=== PATIENT | female | born 1950 | race Two or more races ===

== ENCOUNTER 2023-10-23 15:08 | Inpatient (IN) | payer MEDICARE, OTHER ==
[~2023-10-23] VITALS: Ht 167.6 cm; Wt 59.9 kg
[2023-10-23 16:25] LABS: BASOPHILS # (AUTO) 0.1 K/uL (0.0-0.2); BASOPHILS % (AUTO) 1.3 % (0.0-2.0); EOSINOPHILS # (AUTO) 0.3 K/uL (0.0-0.7); EOSINOPHILS % (AUTO) 4.1 % (0.0-6.0); HEMATOCRIT 45 % (33-45); HEMOGLOBIN 14.9 g/dL (11.5-14.8); LYMPHOCYTES # (AUTO) 1.9 K/uL (0.8-4.8); LYMPHOCYTES % (AUTO) 26.6 % (20.0-44.0); MEAN CORPUSCULAR HEMOGLOBIN 31 PG (26.0-33.0); MEAN CORPUSCULAR HGB CONC 33 g/dl (31.0-36.0); MEAN CORPUSCULAR VOLUME 93 fL (82-100); MONOCYTES # (AUTO) 0.5 K/uL (0.1-1.30); MONOCYTES % (AUTO) 7.4 % (2.0-12.0); NEUTROPHILS # (AUTO) 4.3 K/uL (1.8-8.9); NEUTROPHILS % (AUTO) 60.6 % (43.0-81.0); PLATELET COUNT (AUTO) 218 K/uL (150-450); RED CELL DISTRIBUTION WIDTH 12.6 % (11.5-15.0); WHITE BLOOD COUNT (AUTO) 7.1 K/uL (4.3-11.0)
[2023-10-23 17:25] LABS: ALANINE AMINOTRANSFERASE 12 U/L (12-78); ALBUMIN 3.7 g/dL (3.4-5.0); ALCOHOL, BLOOD < 3 mg/dL (0-10); ALKALINE PHOSPHATASE 77 U/L (46-116); ASPARTATE AMINOTRANSFERASE 16 U/L (15-37); BILIRUBIN,DIRECT 0.1 mg/dL (0.0-0.2); BILIRUBIN,TOTAL 0.6 mg/dL (0.2-1.0); CARBON DIOXIDE 25 mmol/L (21-32); CHLORIDE 102 mmol/L (98-107); CREATININE 1.2 mg/dL (0.6-1.3); GLUCOSE 99 mg/dL (74-106); POTASSIUM 4.3 mmol/L (3.5-5.1); SODIUM SERUM 136 mmol/L (136-145); TOTAL PROTEIN, SERUM 8.1 g/dL (6.4-8.2); UREA NITROGEN, BLOOD 26 mg/dL (7-18)
[2023-10-23 17:27] LABS: ACETAMINOPHEN 0 ug/ml (10-30); SALICYLATE 1.3 mg/dL (2.8-20.0)
[2023-10-23 17:32] LABS: CALCIUM, SERUM 9.5 mg/dL (8.5-10.1)
[2023-10-23 17:40] LABS: THYROID STIMULATING HORMONE 2.713 uIU/mL (0.358-3.74)
[2023-10-23 18:29] LABS: APPEARANCE,URINE Clear (CLEAR); BILIRUBIN,URINE MODERATE (NEGATIVE); BLOOD, URINE Small Ery/uL (NEGATIVE); COLOR,URINE DARK YELLOW (YELLOW); KETONES,URINE 80 mg/dL (NEGATIVE); LEUKOCYTE ESTERASE ,URINE Trace (NEGATIVE); NITRITE, URINE Negative (NEGATIVE); PH,URINE 5.5 (5.0-8.0); PROTEIN,URINE Negative (NEGATIVE); UGLUCOSE Negative (NEGATIVE); UROBILINOGEN,URINE 0.2 EU/dL (0.2)
[2023-10-23 18:31] LABS: AMPHETAMINE, URINE NEGATIVE (NEGATIVE); BARBITURATE, URINE NEGATIVE (NEGATIVE); BENZODIAZEPINE, URINE NEGATIVE (NEGATIVE); CANNABINOID, URINE NEGATIVE (NEGATIVE); COCCAINE, URINE NEGATIVE (NEGATIVE); OPIATE, URINE NEGATIVE (NEGATIVE); PHENCYCLIDINE SCREEN,URINE NEGATIVE (NEGATIVE)
[2023-10-23 18:57] LABS: BACTERIA,URINE Moderate /HPF (None Seen); MUCUS,URINE Moderate /LPF (None Seen); SQUAMOUS EPITHELIAL CELL,UR Moderate /HPF (None Seen)
[2023-10-23 18:58] LABS: ADD URINE CULTURE YES
[2023-10-23] MEDS: IV NS 0.9% 1,000 ML BAG IV ONE (19:52)
[2023-10-23 20:00] VITALS: BP 124/64; TEMP 97.8; O2SAT 97
[2023-10-23] MEDS ORDERED: MAGNESIUM HYDROXIDE 30 ML UDC PO PRN (20:00)
[2023-10-23] MEDS ORDERED: IV NS 0.9% 1,000 ML IV PRN (20:00)
[2023-10-23] MEDS ORDERED: HYDROCODONE/APAP 5/325MG TABLET PO PRN (20:00)
[2023-10-23] MEDS ORDERED: Z GUARD REMEDY 4 OZ OINT TP PRN (20:00)
[2023-10-23] MEDS ORDERED: ONDANSETRON HCL/PF 4 MG/2 ML VIAL IVP PRN (20:00)
[2023-10-23] MEDS ORDERED: ACETAMINOPHEN 325 MG TABLET PO PRN (20:00)
[2023-10-23] MEDS ORDERED: MAG HYDROX/AL HYDROX/SIMETH 30 ML UDC PO PRN (20:00)
[2023-10-24 04:00] VITALS: BP 124/64; TEMP 97.8; O2SAT 97
[2023-10-24 07:31] LABS: CARBON DIOXIDE 23 mmol/L (21-32); CHLORIDE 104 mmol/L (98-107); CREATININE 1.1 mg/dL (0.6-1.3); GLUCOSE 90 mg/dL (74-106); MAGNESIUM 1.9 mg/dL (1.8-2.4); PHOSPHORUS 3.2 mg/dL (2.5-4.9); POTASSIUM 3.7 mmol/L (3.5-5.1); SODIUM SERUM 138 mmol/L (136-145); UREA NITROGEN, BLOOD 24 mg/dL (7-18)
[2023-10-24 07:42] LABS: THYROID STIMULATING HORMONE 2.329 uIU/mL (0.358-3.74)
[2023-10-24 07:44] LABS: CALCIUM, SERUM 8.7 mg/dL (8.5-10.1)
[2023-10-24 07:49] LABS: BASOPHILS # (AUTO) 0.1 K/uL (0.0-0.2); BASOPHILS % (AUTO) 0.8 % (0.0-2.0); EOSINOPHILS # (AUTO) 0.3 K/uL (0.0-0.7); EOSINOPHILS % (AUTO) 3.9 % (0.0-6.0); HEMATOCRIT 40 % (33-45); HEMOGLOBIN 13.5 g/dL (11.5-14.8); LYMPHOCYTES # (AUTO) 2.9 K/uL (0.8-4.8); LYMPHOCYTES % (AUTO) 34.1 % (20.0-44.0); MEAN CORPUSCULAR HEMOGLOBIN 31 PG (26.0-33.0); MEAN CORPUSCULAR HGB CONC 33 g/dl (31.0-36.0); MEAN CORPUSCULAR VOLUME 93 fL (82-100); MONOCYTES # (AUTO) 0.7 K/uL (0.1-1.30); MONOCYTES % (AUTO) 8.6 % (2.0-12.0); NEUTROPHILS # (AUTO) 4.5 K/uL (1.8-8.9); NEUTROPHILS % (AUTO) 52.6 % (43.0-81.0); PLATELET COUNT (AUTO) 205 K/uL (150-450); RED BLOOD CELL COUNT(AUTO) 4.36 MIL/uL (4.0-5.2); RED CELL DISTRIBUTION WIDTH 12.5 % (11.5-15.0); WHITE BLOOD COUNT (AUTO) 8.6 K/uL (4.3-11.0)
[2023-10-24] MEDS ORDERED: VENL37.55 PO (07:52)
[2023-10-24] MEDS ORDERED: APIX5TAB PO (07:52)
[2023-10-24] MEDS ORDERED: ONDA4TAB5 PO (07:52)
[2023-10-24] MEDS ORDERED: ACET-868 PO (07:52)
[2023-10-24] MEDS ORDERED: DILT30TA2 PO (07:52)
[2023-10-24] MEDS ORDERED: OLAN20TA3 PO (07:52)
[2023-10-24] MEDS ORDERED: CHOL200059 PO (07:52)
[2023-10-24] MEDS: PANTOPRAZOLE 40 MG TABLET.DR PO SCH (08:11)
[2023-10-24] MEDS: ENSURE ENLIVE 237 ML LIQUID (VANILLA) PO SCH (09:00)
[2023-10-24 16:00] VITALS: BP 90/37; TEMP 97.6
[2023-10-24 20:00] VITALS: BP 90/37; TEMP 97.6
[2023-10-25 04:00] VITALS: BP 90/37; TEMP 97.6
[2023-10-25 06:33] LABS: BASOPHILS # (AUTO) 0.1 K/uL (0.0-0.2); BASOPHILS % (AUTO) 1.3 % (0.0-2.0); EOSINOPHILS # (AUTO) 0.3 K/uL (0.0-0.7); EOSINOPHILS % (AUTO) 4.1 % (0.0-6.0); HEMATOCRIT 40 % (33-45); HEMOGLOBIN 13.6 g/dL (11.5-14.8); LYMPHOCYTES # (AUTO) 2.6 K/uL (0.8-4.8); LYMPHOCYTES % (AUTO) 33.6 % (20.0-44.0); MEAN CORPUSCULAR HEMOGLOBIN 32 PG (26.0-33.0); MEAN CORPUSCULAR HGB CONC 34 g/dl (31.0-36.0); MEAN CORPUSCULAR VOLUME 93 fL (82-100); MONOCYTES # (AUTO) 0.7 K/uL (0.1-1.30); MONOCYTES % (AUTO) 8.4 % (2.0-12.0); NEUTROPHILS # (AUTO) 4.1 K/uL (1.8-8.9); NEUTROPHILS % (AUTO) 52.6 % (43.0-81.0); PLATELET COUNT (AUTO) 198 K/uL (150-450); RED BLOOD CELL COUNT(AUTO) 4.33 MIL/uL (4.0-5.2); RED CELL DISTRIBUTION WIDTH 12.6 % (11.5-15.0); WHITE BLOOD COUNT (AUTO) 7.7 K/uL (4.3-11.0)
[2023-10-25 07:12] LABS: CARBON DIOXIDE 24 mmol/L (21-32); CHLORIDE 106 mmol/L (98-107); CREATININE 1.1 mg/dL (0.6-1.3); GLUCOSE 101 mg/dL (74-106); MAGNESIUM 1.9 mg/dL (1.8-2.4); PHOSPHORUS 3.5 mg/dL (2.5-4.9); POTASSIUM 3.8 mmol/L (3.5-5.1); SODIUM SERUM 141 mmol/L (136-145); UREA NITROGEN, BLOOD 25 mg/dL (7-18)
[2023-10-25] MEDS ORDERED: ONDANSETRON 4 MG TAB.RAPDIS PO PRN (07:30)
[2023-10-25] MEDS: APIXABAN 5 MG TABLET PO SCH (09:00)
[2023-10-25] MEDS: CHOLECALCIFEROL 1,000 UNIT TABLET (VIT D3) PO SCH (09:00)
[2023-10-25] MEDS: DILTIAZEM HCL 30 MG TABLET PO SCH (09:00)
[2023-10-25] MEDS: VENLAFAXINE XR 37.5 MG CAP.SR.24H PO SCH (09:00)
[2023-10-25 12:00] VITALS: BP 102/58; TEMP 97.4; O2SAT 97
[2023-10-25] MEDS: OLANZAPINE 10 MG TABLET PO SCH (22:00)
[2023-10-26 12:00] VITALS: BP 110/60; TEMP 98; O2SAT 97
[2023-10-27 04:00] VITALS: BP 110/60; TEMP 98; O2SAT 97
[2023-10-28] MEDS: OLANZAPINE 10 MG VIAL IM PRN (08:49)
[2023-10-28] MEDS: OLANZAPINE 10 MG VIAL IM ONE (12:44)
[2023-10-28] MEDS: ENSURE ENLIVE 237 ML LIQUID (VANILLA) PO SCH (14:00)
[2023-10-28 20:00] VITALS: BP 110/60; TEMP 98; O2SAT 97
[2023-10-28] MEDS ORDERED: OLANZAPINE 10 MG VIAL IM PRN (21:30)
[2023-10-29 04:00] VITALS: BP 110/60; TEMP 98; O2SAT 97
[2023-10-29 08:00] VITALS: BP 97/70; TEMP 97.5; O2SAT 94
[2023-10-30 04:00] VITALS: BP 97/70
[2023-11-01 20:00] VITALS: BP 97/70; TEMP 97.5; O2SAT 94
[2023-11-02 04:00] VITALS: BP 97/70; TEMP 97.5; O2SAT 94
[2023-11-02] MEDS ORDERED: HYDR-3972 PO (23:43)
[2023-11-02] MEDS ORDERED: PANT40TA2 PO (23:44)
== END 2023-11-02 23:16 | DRG 640 ==
LOC: ER 15:52 → MEDSG1 20:34
PROVIDERS: ADMIT Nurse Practitioner Acute Care; ATTEND Nurse Practitioner Family
DX: R62.7 Adult failure to thrive (principal); U07.1 COVID-19; I48.20 Chronic atrial fibrillation, unspecified; R79.89 Other specified abnormal findings of blood chemistry; F20.9 Schizophrenia, unspecified; I10 Essential (primary) hypertension; F32.A Depression, unspecified; F29 Unspecified psychosis not due to a substance or known physiological condition; R26.9 Unspecified abnormalities of gait and mobility; R53.1 Weakness; Z78.9 Other specified health status; Z79.01 Long term (current) use of anticoagulants
CPT/HCPCS: 36415; 71045-TC; 80048-TC; 80076-TC; 81001; 82962-TC; 83735-TC; 84100-TC; 84443-TC; 85025-TC; 87081-TC; 87086-TC; 97110-TC; 97116-TC; 97530-TC; G0378; G0480; J3490

== ENCOUNTER 2023-11-02 22:52 | Inpatient (IN) | payer MEDICARE, OTHER ==
[~2023-11-02] VITALS: Ht 167.6 cm; Wt 59.9 kg
[~2023-11-02 22:52] MED LIST: ACET-868 PO; APIX5TAB PO; CHOL200059 PO; DILT30TA2 PO; OLAN20TA3 PO; ONDA4TAB5 PO; VENL37.55 PO
[2023-11-02] MEDS ORDERED: HYDR-3972 PO (23:43)
[2023-11-02] MEDS ORDERED: PANT40TA2 PO (23:44)
[2023-11-03] MEDS ORDERED: LORAZEPAM 0.5 MG TABLET PO PRN
[2023-11-03] MEDS ORDERED: MAG HYDROX/AL HYDROX/SIMETH 30 ML UDC PO PRN
[2023-11-03] MEDS ORDERED: ONDANSETRON 4 MG TAB.RAPDIS PO PRN
[2023-11-03] MEDS ORDERED: MAGNESIUM HYDROXIDE 30 ML UDC PO PRN
[2023-11-03] MEDS ORDERED: Z GUARD REMEDY 4 OZ OINT TP PRN
[2023-11-03] MEDS ORDERED: TEMAZEPAM 7.5 MG CAPSULE PO PRN
[2023-11-03] MEDS: BLOOD SUGAR DIAGNOSTIC 1 EACH STRIP IN ONE (00:16)
[2023-11-03] MEDS ORDERED: HYDROCODONE/APAP 5/325MG TABLET PO PRN ×2 (00:30)
[2023-11-03] MEDS ORDERED: ACETAMINOPHEN 325 MG TABLET PO PRN ×2 (00:30)
[2023-11-03] MEDS ORDERED: PANTOPRAZOLE 40 MG TABLET.DR PO SCH (07:30)
[2023-11-03] MEDS: CHOLECALCIFEROL 1,000 UNIT TABLET (VIT D3) PO SCH ×2 (08:38→08:40)
[2023-11-03] MEDS: PANTOPRAZOLE 40 MG TABLET.DR PO SCH (08:38)
[2023-11-03] MEDS: DILTIAZEM HCL 30 MG TABLET PO SCH (08:39)
[2023-11-03] MEDS: ENSURE ENLIVE 237 ML LIQUID (VANILLA) PO SCH (08:40)
[2023-11-03] MEDS: APIXABAN 5 MG TABLET PO SCH (08:47)
[2023-11-03] MEDS ORDERED: DILTIAZEM HCL 30 MG TABLET PO SCH (09:00)
[2023-11-03] MEDS ORDERED: APIXABAN 5 MG TABLET PO SCH (09:00)
[2023-11-03] MEDS: OLANZAPINE ZYDIS 5 MG TAB.RAPDIS PO SCH (11:30)
[2023-11-07] MEDS: OLANZAPINE ZYDIS 5 MG TAB.RAPDIS PO SCH (11:30)
[2023-11-07] MEDS: OLANZAPINE 10 MG VIAL IM PRN (12:04)
[2023-11-08 08:00] VITALS: BP 128/60; O2SAT 98
[2023-11-08 16:00] VITALS: BP 104/71; TEMP 97.9; O2SAT 98
[2023-11-08 20:00] VITALS: BP 115/67; TEMP 98; O2SAT 97
[2023-11-09 08:00] VITALS: BP 116/70; TEMP 97.7; O2SAT 97
[2023-11-09 16:00] VITALS: BP 113/52; TEMP 98; O2SAT 98
[2023-11-09 20:50] VITALS: BP 117/73; TEMP 98; O2SAT 98
[2023-11-10 08:00] VITALS: BP 113/65; TEMP 97.9; O2SAT 99
[2023-11-10 16:00] VITALS: BP 107/54; TEMP 97.8; O2SAT 96
[2023-11-10 21:06] VITALS: BP 115/79; TEMP 97.9; O2SAT 99
[2023-11-11 08:00] VITALS: BP 119/66; TEMP 97.9; O2SAT 98
[2023-11-11 16:00] VITALS: BP 104/66; TEMP 98.4; O2SAT 100
[2023-11-12 08:00] VITALS: BP 101/63; TEMP 97.7; O2SAT 100
[2023-11-12 16:00] VITALS: BP 117/51; TEMP 97.8; O2SAT 98
[2023-11-12 20:27] VITALS: BP 115/67; TEMP 98.2; O2SAT 100
[2023-11-13 08:00] VITALS: BP 111/64; TEMP 97.8; O2SAT 99
[2023-11-13 12:20] VITALS: BP 120/70
== END 2023-11-13 13:33 | DRG 885 ==
LOC: GPS 22:52
PROVIDERS: ADMIT Psychiatry & Neurology Psychiatry; ATTEND Nurse Practitioner Acute Care
DX: F20.9 Schizophrenia, unspecified (principal); I48.20 Chronic atrial fibrillation, unspecified; F29 Unspecified psychosis not due to a substance or known physiological condition; F32.A Depression, unspecified; R62.7 Adult failure to thrive; R41.9 Unspecified symptoms and signs involving cognitive functions and awareness; Z73.6 Limitation of activities due to disability; F39 Unspecified mood [affective] disorder; Z79.01 Long term (current) use of anticoagulants; I10 Essential (primary) hypertension; R26.9 Unspecified abnormalities of gait and mobility; Z91.199 Patient's noncompliance with other medical treatment and regimen due to unspecified reason; Z86.16 Personal history of COVID-19; Z91.148 Patient's other noncompliance with medication regimen for other reason
CPT/HCPCS: 97112-TC; 97530-TC; J3490; Q0162

== ENCOUNTER 2024-03-09 14:30 | Inpatient (IN) | payer MEDICARE, OTHER ==
[~2024-03-09] VITALS: Ht 165.1 cm; Wt 68.1 kg
[~2024-03-09 14:30] MED LIST changes: +HYDR-3972 PO; +PANT40TA2 PO
[2024-03-09] MEDS: IV NS 0.9% 1,000 ML BAG IV ONE (15:00)
[2024-03-09] MEDS ORDERED: ONDANSETRON HCL/PF 4 MG/2 ML VIAL ONE (15:13)
[2024-03-09] MEDS: ONDANSETRON HCL/PF 4 MG/2 ML VIAL IVP ONE (15:15)
[2024-03-09 15:17] LABS: BASOPHILS # (AUTO) 0.1 K/uL (0.0-0.2); BASOPHILS % (AUTO) 0.9 % (0.0-2.0); EOSINOPHILS # (AUTO) 0.2 K/uL (0.0-0.7); EOSINOPHILS % (AUTO) 2.9 % (0.0-6.0); HEMATOCRIT 40 % (33-45); HEMOGLOBIN 13.2 g/dL (11.5-14.8); LYMPHOCYTES # (AUTO) 1.8 K/uL (0.8-4.8); LYMPHOCYTES % (AUTO) 21.9 % (20.0-44.0); MEAN CORPUSCULAR HEMOGLOBIN 32 PG (26.0-33.0); MEAN CORPUSCULAR HGB CONC 33 g/dl (31.0-36.0); MEAN CORPUSCULAR VOLUME 95 fL (82-100); MONOCYTES # (AUTO) 0.7 K/uL (0.1-1.30); MONOCYTES % (AUTO) 8.6 % (2.0-12.0); NEUTROPHILS # (AUTO) 5.5 K/uL (1.8-8.9); NEUTROPHILS % (AUTO) 65.7 % (43.0-81.0); PLATELET COUNT (AUTO) 240 K/uL (150-450); RED BLOOD CELL COUNT(AUTO) 4.17 MIL/uL (4.0-5.2); RED CELL DISTRIBUTION WIDTH 12.9 % (11.5-15.0); WHITE BLOOD COUNT (AUTO) 8.4 K/uL (4.3-11.0)
[2024-03-09] MEDS ORDERED: LORA-258 PO (15:23)
[2024-03-09] MEDS ORDERED: TEMA7.5C12 PO (15:23)
[2024-03-09] MEDS ORDERED: OLAN5TAB3 PO (15:23)
[2024-03-09] MEDS ORDERED: MAG30ORA PO (15:23)
[2024-03-09] MEDS ORDERED: NITR100C15 PO (15:23)
[2024-03-09] MEDS ORDERED: MAGN400O6 PO (15:23)
[2024-03-09] MEDS ORDERED: NALO4SPR NS (15:23)
[2024-03-09 15:25] LABS: CALCIUM, SERUM 9.7 mg/dL (8.5-10.1); CARBON DIOXIDE 27 mmol/L (21-32); CHLORIDE 108 mmol/L (98-107); CREATININE 1.4 mg/dL (0.6-1.3); GLUCOSE 109 mg/dL (74-106); POTASSIUM 4.2 mmol/L (3.5-5.1); SODIUM SERUM 142 mmol/L (136-145); UREA NITROGEN, BLOOD 24 mg/dL (7-18)
[2024-03-09 15:31] LABS: ALANINE AMINOTRANSFERASE 15 U/L (12-78); ALBUMIN 3.5 g/dL (3.4-5.0); ALKALINE PHOSPHATASE 83 U/L (46-116); ASPARTATE AMINOTRANSFERASE 19 U/L (15-37); BILIRUBIN,DIRECT 0.1 mg/dL (0.0-0.2); BILIRUBIN,TOTAL 0.7 mg/dL (0.2-1.0); TOTAL PROTEIN, SERUM 7.6 g/dL (6.4-8.2)
[2024-03-09 15:34] LABS: LACTIC ACID 1.2 mmol/L (0.4-2.0)
[2024-03-09 16:14] LABS: APPEARANCE,URINE Cloudy (CLEAR); BILIRUBIN,URINE Negative (NEGATIVE); BLOOD, URINE Moderate Ery/uL (NEGATIVE); COLOR,URINE DARK YELLOW (YELLOW); KETONES,URINE Trace mg/dL (NEGATIVE); LEUKOCYTE ESTERASE ,URINE Negative (NEGATIVE); NITRITE, URINE Positive (NEGATIVE); PROTEIN,URINE Trace mg/dl (NEGATIVE); UGLUCOSE Negative (NEGATIVE); UROBILINOGEN,URINE 0.2 EU/dL (0.2)
[2024-03-09 16:29] LABS: INR 1.08 (0.91-1.10); PARTIAL THROMBOPLASTIN TIME 28.3 SEC (24.3-34.3); PROTHROMBIN TIME 11.4 SECS (9.2-11.1)
[2024-03-09] MEDS ORDERED: MORPHINE SULFATE INJ 2 MG/ML DISP.SYRIN IV PRN (16:30)
[2024-03-09] MEDS ORDERED: LORAZEPAM 0.5 MG TABLET PO PRN (16:30)
[2024-03-09] MEDS ORDERED: ONDANSETRON HCL/PF 4 MG/2 ML VIAL IVP PRN (16:30)
[2024-03-09 16:59] LABS: ADD URINE CULTURE YES; BACTERIA,URINE 2+ /HPF (None Seen); CALCIUM OXALATE CRYSTALS,UR Many /HPF (None Seen)
[2024-03-09] MEDS: OLANZAPINE 5 MG TABLET PO SCH (17:00)
[2024-03-09] MEDS: APIXABAN 5 MG TABLET PO SCH (17:00)
[2024-03-09] MEDS: DILTIAZEM HCL 30 MG TABLET PO SCH (17:00)
[2024-03-09] MEDS: IV NS 0.9% 1,000 ML IV SCH (17:48)
[2024-03-09 18:00] VITALS: BP 115/72; TEMP 98.4; O2SAT 100
[2024-03-09] MEDS: CEFTRIAXONE 1 G in IV D5W 50 ML IV SCH (18:12)
[2024-03-09 20:00] VITALS: BP 110/68; TEMP 97.9; O2SAT 99
[2024-03-10 04:00] VITALS: BP 104/60; TEMP 97.9; O2SAT 99
[2024-03-10 07:08] LABS: BASOPHILS # (AUTO) 0.1 K/uL (0.0-0.2); BASOPHILS % (AUTO) 0.8 % (0.0-2.0); EOSINOPHILS # (AUTO) 0.4 K/uL (0.0-0.7); EOSINOPHILS % (AUTO) 4.5 % (0.0-6.0); HEMATOCRIT 35 % (33-45); HEMOGLOBIN 11.6 g/dL (11.5-14.8); LYMPHOCYTES # (AUTO) 2.6 K/uL (0.8-4.8); LYMPHOCYTES % (AUTO) 29.4 % (20.0-44.0); MEAN CORPUSCULAR HEMOGLOBIN 31 PG (26.0-33.0); MEAN CORPUSCULAR HGB CONC 33 g/dl (31.0-36.0); MEAN CORPUSCULAR VOLUME 94 fL (82-100); MONOCYTES % (AUTO) 11.6 % (2.0-12.0); NEUTROPHILS # (AUTO) 4.7 K/uL (1.8-8.9); NEUTROPHILS % (AUTO) 53.7 % (43.0-81.0); PLATELET COUNT (AUTO) 204 K/uL (150-450); RED BLOOD CELL COUNT(AUTO) 3.68 MIL/uL (4.0-5.2); RED CELL DISTRIBUTION WIDTH 13.1 % (11.5-15.0); WHITE BLOOD COUNT (AUTO) 8.7 K/uL (4.3-11.0)
[2024-03-10 07:38] LABS: ALANINE AMINOTRANSFERASE 13 U/L (12-78); ALBUMIN 2.8 g/dL (3.4-5.0); ALKALINE PHOSPHATASE 73 U/L (46-116); ASPARTATE AMINOTRANSFERASE 15 U/L (15-37); BILIRUBIN,TOTAL 0.4 mg/dL (0.2-1.0); CALCIUM, SERUM 9.1 mg/dL (8.5-10.1); CARBON DIOXIDE 25 mmol/L (21-32); CHLORIDE 108 mmol/L (98-107); CREATININE 1.1 mg/dL (0.6-1.3); GLUCOSE 104 mg/dL (74-106); PHOSPHORUS 3.4 mg/dL (2.5-4.9); POTASSIUM 3.9 mmol/L (3.5-5.1); SODIUM SERUM 140 mmol/L (136-145); TOTAL PROTEIN, SERUM 6.5 g/dL (6.4-8.2); UREA NITROGEN, BLOOD 27 mg/dL (7-18)
[2024-03-10 08:00] VITALS: BP 115/70; TEMP 97.5; O2SAT 99
[2024-03-10] MEDS: PANTOPRAZOLE 40 MG TABLET.DR PO SCH (08:36)
[2024-03-10 12:00] VITALS: BP 115/70; TEMP 97.5; O2SAT 99
[2024-03-10 15:38] LABS: CREATININE, URINE 108.6 MG/DL (30.0-125.0); URINE TOTAL PROTEIN 13.1 mg/dL (0-11.9)
[2024-03-10 18:00] VITALS: BP 106/58; TEMP 97.5; O2SAT 96
[2024-03-10 20:00] VITALS: BP 112/51; TEMP 99; O2SAT 99
[2024-03-10] MEDS: ACETAMINOPHEN 325 MG TABLET PO PRN (22:59)
[2024-03-11 04:00] VITALS: BP 130/88; TEMP 97.9; O2SAT 96
[2024-03-11] MEDS: IV NS 0.9% 1,000 ML IV PRN (05:56)
[2024-03-11 08:00] VITALS: BP 120/69; TEMP 97.6; O2SAT 98
[2024-03-11] MEDS: ENSURE ENLIVE 237 ML LIQUID (VANILLA) PO SCH (08:40)
[2024-03-11 12:00] VITALS: BP 116/72; TEMP 98.1; O2SAT 97
[2024-03-11 12:40] LABS: CREATINE KINASE, TOTAL 68 U/L (26-192)
[2024-03-11 12:41] LABS: ALANINE AMINOTRANSFERASE 16 U/L (12-78); ALBUMIN 2.7 g/dL (3.4-5.0); ASPARTATE AMINOTRANSFERASE 13 U/L (15-37); BILIRUBIN,TOTAL 0.2 mg/dL (0.2-1.0); CALCIUM, SERUM 8.8 mg/dL (8.5-10.1); CARBON DIOXIDE 26 mmol/L (21-32); CHLORIDE 109 mmol/L (98-107); CREATININE 1.1 mg/dL (0.6-1.3); GLUCOSE 106 mg/dL (74-106); MAGNESIUM 1.8 mg/dL (1.8-2.4); PHOSPHORUS 3.4 mg/dL (2.5-4.9); POTASSIUM 3.9 mmol/L (3.5-5.1); SODIUM SERUM 141 mmol/L (136-145); TOTAL PROTEIN, SERUM 6.3 g/dL (6.4-8.2); UREA NITROGEN, BLOOD 24 mg/dL (7-18)
[2024-03-11 12:53] LABS: ALKALINE PHOSPHATASE 61 U/L (46-116)
[2024-03-11 13:24] LABS: BASOPHILS # (AUTO) 0.1 K/uL (0.0-0.2); BASOPHILS % (AUTO) 1.2 % (0.0-2.0); EOSINOPHILS # (AUTO) 0.3 K/uL (0.0-0.7); EOSINOPHILS % (AUTO) 4.8 % (0.0-6.0); HEMATOCRIT 34 % (33-45); HEMOGLOBIN 11.6 g/dL (11.5-14.8); LYMPHOCYTES # (AUTO) 1.7 K/uL (0.8-4.8); LYMPHOCYTES % (AUTO) 24.2 % (20.0-44.0); MEAN CORPUSCULAR HEMOGLOBIN 32 PG (26.0-33.0); MEAN CORPUSCULAR HGB CONC 34 g/dl (31.0-36.0); MEAN CORPUSCULAR VOLUME 94 fL (82-100); MONOCYTES # (AUTO) 0.7 K/uL (0.1-1.30); MONOCYTES % (AUTO) 9.9 % (2.0-12.0); NEUTROPHILS # (AUTO) 4.2 K/uL (1.8-8.9); NEUTROPHILS % (AUTO) 59.9 % (43.0-81.0); PLATELET COUNT (AUTO) 217 K/uL (150-450); RED BLOOD CELL COUNT(AUTO) 3.66 MIL/uL (4.0-5.2); RED CELL DISTRIBUTION WIDTH 12.7 % (11.5-15.0); WHITE BLOOD COUNT (AUTO) 7.1 K/uL (4.3-11.0)
[2024-03-11 20:00] VITALS: BP 125/52; TEMP 98.6; O2SAT 100
[2024-03-12 04:00] VITALS: BP 142/75; TEMP 98.1; O2SAT 98
[2024-03-12 08:00] VITALS: BP 126/66; TEMP 98.6; O2SAT 98
[2024-03-12 13:05] VITALS: BP 120/59
[2024-03-12 13:11] LABS: PTH, INTACT 39 pg/mL (15-65)
[2024-03-12 16:10] LABS: *SPE A/G RATIO 0.9 (0.7-1.7); *SPE ALBUMIN 2.7 g/dL (2.9-4.4); *SPE ALPHA-1-GLOBULIN 0.2 g/dL (0.0-0.4); *SPE ALPHA-2-GLOBULIN 0.7 g/dL (0.4-1.0); *SPE BETA GLOBULIN 0.9 g/dL (0.7-1.3); *SPE GLOBULIN, TOTAL 3.1 g/dL (2.2-3.9); *SPE M-SPIKE Not Observed g/dL (Not Observed); *SPE PROTEIN TOTAL 5.8 g/dL (6.0-8.5); *SPEGAMMA GLOBULIN 1.2 g/dL (0.4-1.8)
[2024-03-12] MEDS ORDERED: OLANZAPINE 5 MG TABLET PO SCH (17:00)
== END 2024-03-12 14:55 | DRG 871 ==
LOC: ER 14:35 → MEDSG1 16:10
PROVIDERS: ADMIT Internal Medicine; ATTEND Internal Medicine
DX: A41.50 Gram-negative sepsis, unspecified (principal); G93.41 Metabolic encephalopathy; N17.0 Acute kidney failure with tubular necrosis; N39.0 Urinary tract infection, site not specified; F20.0 Paranoid schizophrenia; R65.20 Severe sepsis without septic shock; E86.0 Dehydration; M89.8X9 Other specified disorders of bone, unspecified site; E78.5 Hyperlipidemia, unspecified; I48.91 Unspecified atrial fibrillation; Z79.01 Long term (current) use of anticoagulants; Z79.899 Other long term (current) drug therapy; D64.9 Anemia, unspecified; F03.90 Unspecified dementia, unspecified severity, without behavioral disturbance, psychotic disturbance, mood disturbance, and anxiety
CPT/HCPCS: 36415; 71045-TC; 80048-TC; 80053-TC; 80076-TC; 81001; 82550-TC; 82570-TC; 83605-TC; 83735-TC; 83970; 84100-TC; 84155; 84165; 84300-TC; 84484-TC; 85025-TC; 85730-TC; 87040-TC; 87081-TC; 87086-TC; A4223; G0378; J0696; J2405; J7030; J7060

== ENCOUNTER 2024-09-08 15:33 | Inpatient (IN) | payer MEDICARE, OTHER ==
[~2024-09-08] VITALS: Ht 165.1 cm; Wt 59.9 kg
[~2024-09-08 15:33] MED LIST changes: +LORA-258 PO; +MAG30ORA PO; +MAGN400O6 PO; +NALO4SPR NS; +NITR100C15 PO; -OLAN20TA3 PO; +OLAN5TAB3 PO; +TEMA7.5C12 PO; -VENL37.55 PO
[2024-09-08 17:43] LABS: BASOPHILS # (AUTO) 0.1 K/uL (0.0-0.2); BASOPHILS % (AUTO) 0.9 % (0.0-2.0); EOSINOPHILS # (AUTO) 0.6 K/uL (0.0-0.7); EOSINOPHILS % (AUTO) 7.4 % (0.0-6.0); HEMATOCRIT 37 % (33-45); HEMOGLOBIN 12.1 g/dL (11.5-14.8); LYMPHOCYTES # (AUTO) 2.5 K/uL (0.8-4.8); LYMPHOCYTES % (AUTO) 31.2 % (20.0-44.0); MEAN CORPUSCULAR HEMOGLOBIN 29 PG (26.0-33.0); MEAN CORPUSCULAR HGB CONC 33 g/dl (31.0-36.0); MEAN CORPUSCULAR VOLUME 89 fL (82-100); MONOCYTES # (AUTO) 0.8 K/uL (0.1-1.30); MONOCYTES % (AUTO) 9.6 % (2.0-12.0); NEUTROPHILS # (AUTO) 4.1 K/uL (1.8-8.9); NEUTROPHILS % (AUTO) 50.9 % (43.0-81.0); PLATELET COUNT (AUTO) 336 K/uL (150-450); RED BLOOD CELL COUNT(AUTO) 4.14 MIL/uL (4.0-5.2); RED CELL DISTRIBUTION WIDTH 15.1 % (11.5-15.0); WHITE BLOOD COUNT (AUTO) 8.1 K/uL (4.3-11.0)
[2024-09-08] MEDS ORDERED: MEGE40TA5 PO (17:58)
[2024-09-08] MEDS ORDERED: OLAN7.5T3 PO (17:58)
[2024-09-08] MEDS ORDERED: DICL100G34 TP (17:58)
[2024-09-08 18:19] LABS: ALANINE AMINOTRANSFERASE 14 U/L (12-78); ALBUMIN 3.2 g/dL (3.4-5.0); ALKALINE PHOSPHATASE 82 U/L (46-116); ASPARTATE AMINOTRANSFERASE 11 U/L (15-37); BILIRUBIN,DIRECT 0.1 mg/dL (0.0-0.2); BILIRUBIN,TOTAL 0.4 mg/dL (0.2-1.0); CALCIUM, SERUM 9.7 mg/dL (8.5-10.1); CARBON DIOXIDE 25 mmol/L (21-32); CHLORIDE 105 mmol/L (98-107); CREATININE 0.9 mg/dL (0.6-1.3); GLUCOSE 100 mg/dL (74-106); POTASSIUM 4.4 mmol/L (3.5-5.1); SODIUM SERUM 138 mmol/L (136-145); UREA NITROGEN, BLOOD 23 mg/dL (7-18)
[2024-09-08 18:20] LABS: ACETAMINOPHEN 0 ug/ml (10-30); ALCOHOL, BLOOD < 3 mg/dL (0-10)
[2024-09-08] MEDS ORDERED: MAGNESIUM HYDROXIDE 30 ML UDC PO PRN (19:30)
[2024-09-08] MEDS ORDERED: MAG HYDROX/AL HYDROX/SIMETH 30 ML UDC PO PRN (19:30)
[2024-09-08] MEDS ORDERED: ONDANSETRON HCL/PF 4 MG/2 ML VIAL IVP PRN (19:30)
[2024-09-08] MEDS ORDERED: CT SWABBABLE VALVE TRANS SET 1 EA INFUS.SET MC ONE (19:42)
[2024-09-08] MEDS ORDERED: IV NS 0.9% 250 ML IV ONE (19:42)
[2024-09-08 21:00] VITALS: BP 113/48; TEMP 99; O2SAT 100
[2024-09-08] MEDS: IV NS 0.9% 1,000 ML IV SCH (21:48)
[2024-09-08] MEDS: ATORVASTATIN 40 MG TABLET PO SCH (22:00)
[2024-09-09] VITALS: BP 115/61; TEMP 99; O2SAT 100
[2024-09-09 04:00] VITALS: BP 117/66; TEMP 99.1; O2SAT 98
[2024-09-09] MEDS ORDERED: DILTIAZEM HCL 30 MG TABLET PO SCH (09:00)
[2024-09-09] MEDS: PANTOPRAZOLE 40 MG VIAL IV SCH (09:57)
[2024-09-09] MEDS: ASPIRIN EC 81 MG TABLET.DR PO SCH (10:19)
[2024-09-09] MEDS: APIXABAN 5 MG TABLET PO SCH (10:20)
[2024-09-09] MEDS: OLANZAPINE 5 MG TABLET PO SCH (10:21)
[2024-09-09] MEDS: DILTIAZEM HCL CD 240 MG PO SCH (10:25)
[2024-09-10 08:00] VITALS: BP 120/69; TEMP 98.1; O2SAT 100
[2024-09-10 13:58] LABS: BASOPHILS # (AUTO) 0.1 K/uL (0.0-0.2); BASOPHILS % (AUTO) 0.6 % (0.0-2.0); EOSINOPHILS # (AUTO) 0.3 K/uL (0.0-0.7); EOSINOPHILS % (AUTO) 3.5 % (0.0-6.0); HEMATOCRIT 34 % (33-45); HEMOGLOBIN 11.4 g/dL (11.5-14.8); LYMPHOCYTES % (AUTO) 22.4 % (20.0-44.0); MEAN CORPUSCULAR HEMOGLOBIN 30 PG (26.0-33.0); MEAN CORPUSCULAR HGB CONC 34 g/dl (31.0-36.0); MEAN CORPUSCULAR VOLUME 89 fL (82-100); MONOCYTES % (AUTO) 10.8 % (2.0-12.0); NEUTROPHILS # (AUTO) 5.7 K/uL (1.8-8.9); NEUTROPHILS % (AUTO) 62.7 % (43.0-81.0); PLATELET COUNT (AUTO) 302 K/uL (150-450); RED CELL DISTRIBUTION WIDTH 14.6 % (11.5-15.0); WHITE BLOOD COUNT (AUTO) 9.1 K/uL (4.3-11.0)
[2024-09-10 14:31] LABS: CALCIUM, SERUM 9.4 mg/dL (8.5-10.1); CREATININE 0.6 mg/dL (0.6-1.3); POTASSIUM 3.7 mmol/L (3.5-5.1)
[2024-09-10] MEDS: IV NS 0.9% 1,000 ML IV PRN (15:15)
[2024-09-10 16:00] VITALS: BP 112/68; TEMP 98.1; O2SAT 100
[2024-09-10] MEDS: APIXABAN 5 MG TABLET PO SCH (17:32)
[2024-09-10 20:47] VITALS: BP 119/78; TEMP 97.9; O2SAT 97
[2024-09-11] VITALS: BP 119/78; TEMP 97.9; O2SAT 97
[2024-09-11] MEDS: PANTOPRAZOLE 40 MG TABLET.DR PO SCH (09:47)
[2024-09-11] MEDS: MEGESTROL ACETATE 40 MG TABLET PO SCH (16:47)
[2024-09-11 20:00] VITALS: BP 121/77; TEMP 97.9; O2SAT 98
[2024-09-12 04:00] VITALS: BP 114/54; TEMP 97.5; O2SAT 100
[2024-09-12 08:00] VITALS: BP 125/66; TEMP 97.6; O2SAT 97
[2024-09-12 14:10] LABS: OCCULT BLOOD STOOL POSITIVE (NEGATIVE)
[2024-09-12 15:29] LABS: BASOPHILS # (AUTO) 0.1 K/uL (0.0-0.2); BASOPHILS % (AUTO) 0.8 % (0.0-2.0); EOSINOPHILS # (AUTO) 0.1 K/uL (0.0-0.7); EOSINOPHILS % (AUTO) 0.7 % (0.0-6.0); HEMATOCRIT 32 % (33-45); HEMOGLOBIN 10.7 g/dL (11.5-14.8); LYMPHOCYTES # (AUTO) 1.5 K/uL (0.8-4.8); LYMPHOCYTES % (AUTO) 13.1 % (20.0-44.0); MEAN CORPUSCULAR HEMOGLOBIN 30 PG (26.0-33.0); MEAN CORPUSCULAR HGB CONC 34 g/dl (31.0-36.0); MEAN CORPUSCULAR VOLUME 89 fL (82-100); MONOCYTES # (AUTO) 0.8 K/uL (0.1-1.30); MONOCYTES % (AUTO) 7.2 % (2.0-12.0); NEUTROPHILS # (AUTO) 8.7 K/uL (1.8-8.9); NEUTROPHILS % (AUTO) 78.2 % (43.0-81.0); PLATELET COUNT (AUTO) 324 K/uL (150-450); RED BLOOD CELL COUNT(AUTO) 3.57 MIL/uL (4.0-5.2); RED CELL DISTRIBUTION WIDTH 14.9 % (11.5-15.0); WHITE BLOOD COUNT (AUTO) 11.1 K/uL (4.3-11.0)
[2024-09-12 16:00] VITALS: BP 125/66; TEMP 97.6; O2SAT 97
[2024-09-12 16:04] LABS: CALCIUM, SERUM 9.2 mg/dL (8.5-10.1); CREATININE 0.7 mg/dL (0.6-1.3); MAGNESIUM 1.7 mg/dL (1.8-2.4); PHOSPHORUS 2.9 mg/dL (2.5-4.9); POTASSIUM 3.3 mmol/L (3.5-5.1)
[2024-09-12 20:00] VITALS: BP 107/79; TEMP 98.2; O2SAT 100
[2024-09-12 20:22] LABS: APPEARANCE,URINE CLEAR (CLEAR); BILIRUBIN,URINE 1+ (NEGATIVE); BLOOD, URINE NEGATIVE Ery/uL (NEGATIVE); COLOR,URINE YELLOW (YELLOW); KETONES,URINE 2+ mg/dL (NEGATIVE); LEUKOCYTE ESTERASE ,URINE NEGATIVE (NEGATIVE); NITRITE, URINE NEGATIVE (NEGATIVE); PROTEIN,URINE TRACE mg/dl (NEGATIVE); UGLUCOSE NEGATIVE (NEGATIVE); UROBILINOGEN,URINE 0.2 EU/dL (0.2)
[2024-09-12 20:33] LABS: ADD URINE CULTURE YES; BACTERIA,URINE 1+ /HPF (None Seen); RBC,URINE 0-2 /HPF (0-2); WBC,URINE 0-2 /HPF (0-3)
[2024-09-12 20:34] LABS: CALCIUM OXALATE CRYSTALS,UR Moderate /HPF (None Seen)
[2024-09-12] MEDS: PANTOPRAZOLE 40 MG VIAL IV SCH (21:47)
[2024-09-12] MEDS: POTASSIUM CHLORIDE 20 MEQ POWDER PACKET GT ONE (21:47)
[2024-09-13 04:00] VITALS: BP 111/78; TEMP 98.6; O2SAT 99
[2024-09-13 05:55] LABS: BASOPHILS # (AUTO) 0.1 K/uL (0.0-0.2); BASOPHILS % (AUTO) 0.4 % (0.0-2.0); EOSINOPHILS # (AUTO) 0.1 K/uL (0.0-0.7); EOSINOPHILS % (AUTO) 0.4 % (0.0-6.0); HEMATOCRIT 30 % (33-45); HEMOGLOBIN 9.8 g/dL (11.5-14.8); LYMPHOCYTES # (AUTO) 1.3 K/uL (0.8-4.8); LYMPHOCYTES % (AUTO) 8.9 % (20.0-44.0); MEAN CORPUSCULAR HEMOGLOBIN 30 PG (26.0-33.0); MEAN CORPUSCULAR HGB CONC 33 g/dl (31.0-36.0); MEAN CORPUSCULAR VOLUME 91 fL (82-100); MONOCYTES # (AUTO) 1.6 K/uL (0.1-1.30); MONOCYTES % (AUTO) 10.5 % (2.0-12.0); NEUTROPHILS % (AUTO) 79.8 % (43.0-81.0); PLATELET COUNT (AUTO) 312 K/uL (150-450); RED BLOOD CELL COUNT(AUTO) 3.28 MIL/uL (4.0-5.2); RED CELL DISTRIBUTION WIDTH 14.9 % (11.5-15.0)
[2024-09-13] MEDS ORDERED: IV NS 0.9% 1,000 ML IV PRN (06:00)
[2024-09-13 06:11] LABS: CARBON DIOXIDE 18 mmol/L (21-32); CHLORIDE 111 mmol/L (98-107); CREATININE 0.6 mg/dL (0.6-1.3); GLUCOSE 104 mg/dL (74-106); MAGNESIUM 1.8 mg/dL (1.8-2.4); PHOSPHORUS 2.8 mg/dL (2.5-4.9); POTASSIUM 3.6 mmol/L (3.5-5.1); SODIUM SERUM 143 mmol/L (136-145); UREA NITROGEN, BLOOD 25 mg/dL (7-18)
[2024-09-13 08:00] VITALS: BP 111/78; TEMP 98.6; O2SAT 99
[2024-09-13] MEDS ORDERED: IOHEXOL 50 ML IV ONE (08:06)
[2024-09-13] MEDS ORDERED: ANESTHESIA TRAY IN PYXIS 1 EA TRAY MC ONE (08:07)
[2024-09-13] MEDS ORDERED: LIDOCAINE HCL/MPF 1% 30 ML VIAL IJ ONE (08:07)
[2024-09-13 16:00] VITALS: BP 114/72; TEMP 97.8; O2SAT 99
[2024-09-13 20:00] VITALS: BP 126/85; TEMP 99.7; O2SAT 95
[2024-09-13] MEDS: ACETAMINOPHEN 325 MG TABLET PO PRN (21:44)
[2024-09-14 04:00] VITALS: BP 114/83; TEMP 99.1; O2SAT 95
[2024-09-14 08:00] VITALS: BP 110/86; TEMP 97.2; O2SAT 93
[2024-09-14] MEDS: ASPIRIN EC 81 MG TABLET.DR PO SCH (09:25)
[2024-09-14] MEDS: PANTOPRAZOLE 40 MG TABLET.DR PO SCH (09:28)
[2024-09-14] MEDS: APIXABAN 2.5 MG TABLET PO SCH (09:32)
[2024-09-14 16:00] VITALS: BP 110/59; TEMP 97.9; O2SAT 92
[2024-09-14 16:41] LABS: BASOPHILS # (AUTO) 0.1 K/uL (0.0-0.2); BASOPHILS % (AUTO) 0.4 % (0.0-2.0); EOSINOPHILS % (AUTO) 0.3 % (0.0-6.0); HEMATOCRIT 27 % (33-45); HEMOGLOBIN 8.8 g/dL (11.5-14.8); LYMPHOCYTES # (AUTO) 1.2 K/uL (0.8-4.8); LYMPHOCYTES % (AUTO) 9.7 % (20.0-44.0); MEAN CORPUSCULAR HEMOGLOBIN 29 PG (26.0-33.0); MEAN CORPUSCULAR HGB CONC 33 g/dl (31.0-36.0); MEAN CORPUSCULAR VOLUME 89 fL (82-100); MONOCYTES # (AUTO) 1.2 K/uL (0.1-1.30); MONOCYTES % (AUTO) 9.9 % (2.0-12.0); NEUTROPHILS # (AUTO) 9.5 K/uL (1.8-8.9); NEUTROPHILS % (AUTO) 79.7 % (43.0-81.0); PLATELET COUNT (AUTO) 313 K/uL (150-450); RED BLOOD CELL COUNT(AUTO) 3.03 MIL/uL (4.0-5.2); RED CELL DISTRIBUTION WIDTH 15.1 % (11.5-15.0); WHITE BLOOD COUNT (AUTO) 11.9 K/uL (4.3-11.0)
[2024-09-14 17:05] LABS: CALCIUM, SERUM 8.6 mg/dL (8.5-10.1); CREATININE 0.6 mg/dL (0.6-1.3); POTASSIUM 2.9 mmol/L (3.5-5.1)
[2024-09-14] MEDS: POTASSIUM CHLORIDE 20 MEQ POWDER PACKET PO ONE (18:36)
[2024-09-14] MEDS: IV D5/ 0.9% NACL 1,000 ML IV PRN (18:36)
[2024-09-14] MEDS: POTASSIUM CL. PREMIX PERIPHER. 50 ML IV SCH (18:37)
[2024-09-14 20:00] VITALS: BP 104/70; TEMP 98.5; O2SAT 92
[2024-09-15 04:00] VITALS: BP 96/70; TEMP 98.5; O2SAT 92
[2024-09-15 07:43] LABS: BASOPHILS % (AUTO) 0.5 % (0.0-2.0); EOSINOPHILS # (AUTO) 0.3 K/uL (0.0-0.7); EOSINOPHILS % (AUTO) 2.5 % (0.0-6.0); HEMATOCRIT 25 % (33-45); HEMOGLOBIN 8.5 g/dL (11.5-14.8); LYMPHOCYTES # (AUTO) 1.7 K/uL (0.8-4.8); LYMPHOCYTES % (AUTO) 16.5 % (20.0-44.0); MEAN CORPUSCULAR HEMOGLOBIN 31 PG (26.0-33.0); MEAN CORPUSCULAR HGB CONC 34 g/dl (31.0-36.0); MEAN CORPUSCULAR VOLUME 89 fL (82-100); MONOCYTES # (AUTO) 1.2 K/uL (0.1-1.30); MONOCYTES % (AUTO) 11.7 % (2.0-12.0); NEUTROPHILS # (AUTO) 7.1 K/uL (1.8-8.9); NEUTROPHILS % (AUTO) 68.8 % (43.0-81.0); PLATELET COUNT (AUTO) 283 K/uL (150-450); RED CELL DISTRIBUTION WIDTH 15.1 % (11.5-15.0); WHITE BLOOD COUNT (AUTO) 10.3 K/uL (4.3-11.0)
[2024-09-15 07:59] LABS: CALCIUM, SERUM 9.1 mg/dL (8.5-10.1); CREATININE 0.6 mg/dL (0.6-1.3); POTASSIUM 3.2 mmol/L (3.5-5.1)
[2024-09-15 08:00] VITALS: BP 94/52; TEMP 97.9; O2SAT 95
[2024-09-15] MEDS: POTASSIUM CHLORIDE 20 MEQ POWDER PACKET PO SCH (10:30)
[2024-09-15] MEDS: POTASSIUM CL. PREMIX PERIPHER. 50 ML IV SCH (12:02)
[2024-09-15 16:00] VITALS: BP 95/64; TEMP 97.7; O2SAT 100
[2024-09-15 20:00] VITALS: BP 101/66; TEMP 98.6; O2SAT 100
[2024-09-16 04:00] VITALS: BP 107/47; TEMP 97.5; O2SAT 100
[2024-09-16 06:59] LABS: BASOPHILS # (AUTO) 0.1 K/uL (0.0-0.2); BASOPHILS % (AUTO) 0.6 % (0.0-2.0); EOSINOPHILS # (AUTO) 0.4 K/uL (0.0-0.7); EOSINOPHILS % (AUTO) 4.8 % (0.0-6.0); HEMATOCRIT 27 % (33-45); HEMOGLOBIN 8.9 g/dL (11.5-14.8); LYMPHOCYTES # (AUTO) 2.1 K/uL (0.8-4.8); LYMPHOCYTES % (AUTO) 23.1 % (20.0-44.0); MEAN CORPUSCULAR HEMOGLOBIN 30 PG (26.0-33.0); MEAN CORPUSCULAR HGB CONC 33 g/dl (31.0-36.0); MEAN CORPUSCULAR VOLUME 90 fL (82-100); MONOCYTES # (AUTO) 0.8 K/uL (0.1-1.30); MONOCYTES % (AUTO) 8.4 % (2.0-12.0); NEUTROPHILS # (AUTO) 5.8 K/uL (1.8-8.9); NEUTROPHILS % (AUTO) 63.1 % (43.0-81.0); PLATELET COUNT (AUTO) 348 K/uL (150-450); RED BLOOD CELL COUNT(AUTO) 3.01 MIL/uL (4.0-5.2); RED CELL DISTRIBUTION WIDTH 15.2 % (11.5-15.0); WHITE BLOOD COUNT (AUTO) 9.2 K/uL (4.3-11.0)
[2024-09-16 07:09] LABS: INR 1.11 (0.91-1.10); PARTIAL THROMBOPLASTIN TIME 29.2 SEC (24.3-34.3); PROTHROMBIN TIME 11.7 SECS (9.2-11.1)
[2024-09-16 07:30] LABS: CALCIUM, SERUM 9.2 mg/dL (8.5-10.1); CREATININE 0.6 mg/dL (0.6-1.3); MAGNESIUM 1.8 mg/dL (1.8-2.4); PHOSPHORUS 2.1 mg/dL (2.5-4.9); POTASSIUM 3.2 mmol/L (3.5-5.1)
[2024-09-16 08:00] VITALS: BP 128/78; TEMP 98.2; O2SAT 97
[2024-09-16] MEDS: POTASSIUM CL. PREMIX PERIPHER. 50 ML IV SCH (10:12)
[2024-09-16 16:00] VITALS: BP 122/60; TEMP 97.8; O2SAT 97
[2024-09-16] MEDS: Sodium Phosphate 15 MMOL in IV NS 0.9% 245 ML IV SCH (16:03)
[2024-09-16 20:00] VITALS: BP 132/74; TEMP 97.7; O2SAT 99
[2024-09-16] MEDS ORDERED: ANESTHESIA TRAY IN PYXIS 1 EA TRAY MC ONE (20:23)
[2024-09-17 04:00] VITALS: BP 101/62; TEMP 98.6; O2SAT 99
[2024-09-17 06:53] LABS: BASOPHILS % (AUTO) 0.4 % (0.0-2.0); EOSINOPHILS # (AUTO) 0.2 K/uL (0.0-0.7); HEMATOCRIT 26 % (33-45); LYMPHOCYTES # (AUTO) 1.5 K/uL (0.8-4.8); LYMPHOCYTES % (AUTO) 15.3 % (20.0-44.0); MEAN CORPUSCULAR HEMOGLOBIN 30 PG (26.0-33.0); MEAN CORPUSCULAR HGB CONC 34 g/dl (31.0-36.0); MEAN CORPUSCULAR VOLUME 89 fL (82-100); MONOCYTES # (AUTO) 0.5 K/uL (0.1-1.30); NEUTROPHILS # (AUTO) 7.6 K/uL (1.8-8.9); NEUTROPHILS % (AUTO) 77.3 % (43.0-81.0); PLATELET COUNT (AUTO) 375 K/uL (150-450); RED BLOOD CELL COUNT(AUTO) 2.98 MIL/uL (4.0-5.2); WHITE BLOOD COUNT (AUTO) 9.8 K/uL (4.3-11.0)
[2024-09-17 06:56] LABS: CALCIUM, SERUM 8.3 mg/dL (8.5-10.1); CREATININE 0.5 mg/dL (0.6-1.3); MAGNESIUM 1.4 mg/dL (1.8-2.4); PHOSPHORUS 3.1 mg/dL (2.5-4.9); POTASSIUM 3.3 mmol/L (3.5-5.1)
[2024-09-17 08:00] VITALS: BP 111/59; TEMP 98.6; O2SAT 100
[2024-09-17] MEDS ORDERED: ATORVASTATIN 40 MG TABLET GT SCH (08:47)
[2024-09-17] MEDS ORDERED: MAGNESIUM HYDROXIDE 30 ML UDC GT PRN (08:47)
[2024-09-17] MEDS ORDERED: MAG HYDROX/AL HYDROX/SIMETH 30 ML UDC GT PRN (08:47)
[2024-09-17 08:57] VITALS: BP 111/59
[2024-09-17] MEDS: PANTOPRAZOLE 40 MG/PACK PACK GT SCH (08:57)
[2024-09-17] MEDS: OLANZAPINE 5 MG TABLET GT SCH (08:57)
[2024-09-17] MEDS: DILTIAZEM HCL CD 240 MG GT SCH (08:57)
[2024-09-17] MEDS: MEGESTROL ACETATE 40 MG TABLET GT SCH (08:57)
[2024-09-17] MEDS ORDERED: PHARMACY TO CHANGE PO MEDS TO GT/NG XX PRN (09:00)
[2024-09-17] MEDS: POTASSIUM CL. PREMIX PERIPHER. 50 ML IV SCH (10:08)
[2024-09-17] MEDS: JEVITY 1.2 CAL 1,000 ML BOTTLE GT PRN (10:39)
[2024-09-17] MEDS ORDERED: PANT40SU2 GT (10:40)
[2024-09-17] MEDS ORDERED: DILT240C88 GT (10:40)
[2024-09-17] MEDS ORDERED: ATOR40TA GT (10:40)
[2024-09-17] MEDS ORDERED: LACT-209 GT (10:40)
[2024-09-17] MEDS: Magnesium 1GM/D5W 100ML PREMIX 100 ML IV SCH (11:59)
== END 2024-09-17 15:13 | DRG 640 ==
LOC: ER 15:45 → MEDSG1 19:11 → TELE1 21:00 → MEDSG1 09-10 10:02
PROC: 05H933Z Insertion of Infusion Device into Right Brachial Vein, Percutaneous Approach (ICD-10-PCS; 2024-09-12)
PROC: B54CZZZ Ultrasonography of Left Lower Extremity Veins (ICD-10-PCS; 2024-09-13)
PROC: 06HY33Z Insertion of Infusion Device into Lower Vein, Percutaneous Approach (ICD-10-PCS; 2024-09-13)
PROC: B51CZZA Fluoroscopy of Left Lower Extremity Veins, Guidance (ICD-10-PCS; principal; 2024-09-13 08:30)
PROC: 0DH63UZ Insertion of Feeding Device into Stomach, Percutaneous Approach (ICD-10-PCS; 2024-09-16)
DX: R62.7 Adult failure to thrive (principal); G93.41 Metabolic encephalopathy; I63.81 Other cerebral infarction due to occlusion or stenosis of small artery; N17.0 Acute kidney failure with tubular necrosis; I82.221 Chronic embolism and thrombosis of inferior vena cava; G93.49 Other encephalopathy; F03.93 Unspecified dementia, unspecified severity, with mood disturbance; E44.1 Mild protein-calorie malnutrition; K92.2 Gastrointestinal hemorrhage, unspecified; I82.412 Acute embolism and thrombosis of left femoral vein; K29.70 Gastritis, unspecified, without bleeding; Z86.73 Personal history of transient ischemic attack (TIA), and cerebral infarction without residual deficits; F25.9 Schizoaffective disorder, unspecified; R13.10 Dysphagia, unspecified; I48.91 Unspecified atrial fibrillation; F32.A Depression, unspecified; E88.09 Other disorders of plasma-protein metabolism, not elsewhere classified; I10 Essential (primary) hypertension; Z53.09 Procedure and treatment not carried out because of other contraindication; Z79.01 Long term (current) use of anticoagulants; Z79.899 Other long term (current) drug therapy; D72.829 Elevated white blood cell count, unspecified
CPT/HCPCS: 36415; 43246; 70450-TC; 70496-TC; 70498-TC; 71045-TC; 74018; 80048-TC; 80076-TC; 81001; 82272-TC; 82607-TC; 83735-TC; 83921; 84100-TC; 85025-TC; 85730-TC; 87081-TC; 87086-TC; 92526; 92611-TC; 93307-TC; 93970-TC; 97110-TC; 97112-TC; 97530-TC; 97535-TC; A4223; A9563; C1769; G0378; G0480; J0690; J1644; J2470; J2704; J3475; J3480; J3490; J7030; J7042; J7050; Q9967